=== PATIENT | female | born 1985 | race African-American/Black ===

== ENCOUNTER 2017-01-18 19:43 | Inpatient (IN) | payer OTHER ==
[~2017-01-18] VITALS: Ht 152.4 cm; Wt 52.7 kg
--- NOTE | ~2017-01-18 | S ---
[facility] [place] [address] SURGICAL PATH RPT PROCEDURE Name: CHRISSY CUMMINGS Room #: 213-P DIS IN M.R.#: [id number] Admission: 01/19/17 Date of : 81 Discharge: 01/24/17 Report #: [id number] Path Case #: [id number] PATHOLOGY REPORT COLLECTION DATE: 01/20/2017 RECEIVED DATE: 01/24/2017 SUBMITTING PHYS: Dr. Abel Turk OTHER PHYS: Dr. Jinny Angulo SPECIMEN(S) RECEIVED: A.Peripheral smear * * * * * * * * * * * * FINAL DIAGNOSIS: Peripheral blood smear: - Moderate leukopenia and mild thrombocytopenia. (see comment) COMMENT: Overall, the peripheral blood has moderate leukopenia and mild thrombocytopenia. The hemoglobin is within the normal reference range. The leukopenia consists of neutropenia, lymphopenia, and monocytopenia. The etiology of the findings is unclear based entirely on slide review. Both reactive appearing and plasmacytoid appearing lymphocytes are noted. Potential causes of leukopenia include infections, drug reactions, and primary bone marrow disorders. Potential causes of thrombocytopenia include immune and non-immune platelet destruction, drug and/or toxic exposures, dilutional, and primary bone marrow disorders. Correlation with clinical history and additional laboratory data is recommended. (CLW:; 01/25/2017) PATHOLOGIST: Erika Peterson M.D. REPORT ELECTRONICALLY SIGNED BY: Erika Peterson M.D. DATE/TIME: 01/25/2017 18:52 * * * * * * * * * * * * MICROSCOPIC DESCRIPTION: CBC Data (01/20/17): WBC 1,500 /uL, RBC 3.82, hemoglobin 12.4 g/dL, hematocrit 35.6%, MCV 93.1 fL, MCH 32.5 pg, MCHC 34.9 g/dL, RDW 13.2%, and platelet count 109,000 /uL. Automated white blood cell differential: segs 53.4%, lymphs 40.5%, monos 5.8%, eos 0%, and basos 0.3%. Peripheral Blood Smear: Cytomorphological examination of the Sharma's stained peripheral blood smear confirms the provided data. Red blood cells are normocytic and are without significant anisopoikilocytosis. White blood cells are moderately decreased in number. They are [address] [place] [address] SURGICAL PATH RPT PROCEDURE Name: CUMMINGSMATAWAN Room #: 213-P [facility] IN M.R.#: [id number] Admission: 01/19/17 Date of : 81 Discharge: 01/24/17 Report #: [id number] Path Case #: [id number] predominantly granulocytes and lymphocytes. Granulocytes are predominantly segmented neutrophils and are without significant dyspoiesis or significant left shift. Scattered band forms are noted. Lymphocytes are predominantly small, round, and mature appearing with condensed chromatin and scant cytoplasm with admixed large granular lymphocytes. Occasional reactive appearing and plasmacytoid appearing lymphocytes are noted. No markedly atypical lymphoid cells are seen on scanning. Monocytes are mature. Platelets are adequate (mildly decreased) in number and mainly normal in morphology with rare larger platelets noted. CLINICAL HISTORY: 31 year-old woman with leukopenia and thrombocytopenia. Morphologic review of the peripheral blood smear is requested by the patient's physician. INITIAL CPT CODE(S): A; [place] Professional services performed by [employer] at [facility] [address], [place] [address] Technical services performed by [employer] at [address] [place] [address], [address], [place] [address]. [facility] [address] [place] [address] PHONE: [phone] DIRECTOR: Kishore Mercedes M.D. * * * END OF REPORT * * *
[2017-01-18 19:59] VITALS: BP 122/80
[2017-01-18] MEDS ORDERED: IBUPROFEN 400400 M2 PO (21:03)
[2017-01-18] MEDS ORDERED: FLEXERIL PO (21:03)
[2017-01-18 22:14] LABS: URINE BILIRUBIN NEGATIVE (Negative); URINE BLOOD 3+ (Negative); URINE COLOR YELLOW; URINE GLUCOSE-RANDOM* NEGATIVE (Negative); URINE KETONES NEGATIVE (Negative); URINE NITRITE NEGATIVE (Negative); URINE PROTEIN (DIPSTICK) 2+ (Negative)
[2017-01-18 22:15] LABS: PLATELET COUNT 147 thou/uL (150-400)
[2017-01-18 22:17] LABS: HEMATOCRIT 40.8 % (37.0-47.0); MCHC 34.2 g/dL (28.0-37.0); MCV 93.6 fL (80.0-100.0); RBC 4.36 mil/uL (4.20-5.00); RDW 13.4 % (10.5-14.5)
[2017-01-18 22:19] LABS: CALCIUM 8.4 mg/dL (8.5-10.1); CREATININE 0.6 mg/dL (0.6-1.0); MANUAL DIFF YES; POTASSIUM 3.6 mmol/L (3.5-5.1)
[2017-01-18 22:24] LABS: ALBUMIN 3.4 g/dL (3.4-5.0); DIRECT BILIRUBIN 0.3 mg/dL (<0.1-0.3); TOTAL BILIRUBIN 0.8 mg/dL (<0.1-1.0); TOTAL PROTEIN 7.4 g/dL (6.4-8.2)
[2017-01-18 22:35] LABS: CASTS None Seen /LPF (None Seen); SQUAMOUS >10 Many /LPF (0-3)
[2017-01-18 22:36] LABS: CRYSTALS None Seen /LPF (None Seen)
[2017-01-18 22:37] LABS: AMORPHOUS URATES Few /LPF (None Seen)
[2017-01-18 22:38] LABS: URINE WBC >25 Many /HPF (0-5)
[2017-01-18 22:44] LABS: ABSOLUTE NEUTROPHILS 1.1 thou/uL (1.4-8.2); TOTAL CELL COUNT 100
[2017-01-18 22:47] LABS: WBC 1.6 thou/uL (4.0-11.0)
[2017-01-19 01:52] LABS: CSF GLUCOSE 61 mg/dL (40-70); CSF PROTEIN 29 mg/dL (15-45)
[2017-01-19 02:03] VITALS: BP 122/71
[2017-01-19 02:08] LABS: CSF CLARITY CLEAR; CSF COLOR COLORLESS; CSF WBC 0 /mm3 (0-10); MANUAL DIFF NO; NUMBER OF TUBES 4; VOLUME 4 ml
[2017-01-19 02:19] VITALS: BP 110/70
[2017-01-19 11:20] VITALS: BP 102/62
[2017-01-19 16:01] LABS: HEMATOCRIT 38.5 % (37.0-47.0); HEMOGLOBIN 13.2 gm/dL (12.0-15.0); MCHC 34.3 g/dL (28.0-37.0); MCV 93.4 fL (80.0-100.0); RBC 4.12 mil/uL (4.20-5.00); RDW 13.1 % (10.5-14.5)
[2017-01-19 16:03] LABS: WBC 1.4 thou/uL (4.0-11.0)
[2017-01-19 16:16] LABS: ALBUMIN 2.7 g/dL (3.4-5.0); CALCIUM 7.8 mg/dL (8.5-10.1); CREATININE 0.7 mg/dL (0.6-1.0); POTASSIUM 3.8 mmol/L (3.5-5.1); TOTAL BILIRUBIN 1.1 mg/dL (<0.1-1.0); TOTAL PROTEIN 6.2 g/dL (6.4-8.2)
[2017-01-19 16:21] VITALS: BP 119/80
[2017-01-19 18:07] LABS: HEPATITIS C VIRUS AB 0.1 (0.0-0.9)
[2017-01-19 19:30] VITALS: BP 121/72
[2017-01-19 23:48] VITALS: BP 112/67
[2017-01-20 04:30] VITALS: BP 106/68
[2017-01-20 04:49] LABS: HEMOGLOBIN 13.1 gm/dL (12.0-15.0)
[2017-01-20 04:51] LABS: HEMATOCRIT 38.2 % (37.0-47.0); MCH 32.2 pg (26.0-34.0); MCHC 34.2 g/dL (28.0-37.0); MCV 94.1 fL (80.0-100.0); RBC 4.06 mil/uL (4.20-5.00); RDW 13.3 % (10.5-14.5)
[2017-01-20 04:59] LABS: WBC 1.3 thou/uL (4.0-11.0)
[2017-01-20 05:02] LABS: ALBUMIN 2.5 g/dL (3.4-5.0); CALCIUM 7.7 mg/dL (8.5-10.1); CREATININE 0.5 mg/dL (0.6-1.0); POTASSIUM 3.4 mmol/L (3.5-5.1); TOTAL BILIRUBIN 1.2 mg/dL (<0.1-1.0); TOTAL PROTEIN 5.9 g/dL (6.4-8.2)
[2017-01-20 07:39] VITALS: BP 109/71
[2017-01-20 11:09] LABS: LYME ANTIBODY SCREEN* <0.91 ISR (0.00-0.90)
[2017-01-20 13:46] VITALS: BP 111/67
[2017-01-20 16:06] VITALS: BP 99/53
[2017-01-20 19:34] VITALS: BP 114/75
[2017-01-20 22:10] LABS: HIV ANTIBODY Non Reactive (Non Reactive)
[2017-01-21 03:58] VITALS: BP 115/59
[2017-01-21 04:42] LABS: HEMOGLOBIN 13.4 gm/dL (12.0-15.0); MCH 31.8 pg (26.0-34.0); MCHC 34.3 g/dL (28.0-37.0); MCV 92.6 fL (80.0-100.0); RBC 4.21 mil/uL (4.20-5.00); RDW 13.6 % (10.5-14.5); WBC 2.1 thou/uL (4.0-11.0)
[2017-01-21 05:03] LABS: ALBUMIN 2.8 g/dL (3.4-5.0); CALCIUM 7.8 mg/dL (8.5-10.1); CREATININE 0.6 mg/dL (0.6-1.0); POTASSIUM 3.4 mmol/L (3.5-5.1); TOTAL BILIRUBIN 1.9 mg/dL (<0.1-1.0); TOTAL PROTEIN 6.5 g/dL (6.4-8.2)
[2017-01-21 07:40] VITALS: BP 108/72
[2017-01-21 11:36] VITALS: BP 110/68
[2017-01-21 15:33] VITALS: BP 102/61
[2017-01-21 19:01] VITALS: BP 94/54
[2017-01-22 04:20] VITALS: BP 101/64
[2017-01-22 05:02] LABS: HEMATOCRIT 36.2 % (37.0-47.0); HEMOGLOBIN 12.3 gm/dL (12.0-15.0); MCH 31.8 pg (26.0-34.0); MCV 93.4 fL (80.0-100.0); RBC 3.88 mil/uL (4.20-5.00); RDW 13.7 % (10.5-14.5); WBC 2.4 thou/uL (4.0-11.0)
[2017-01-22 05:19] LABS: ALBUMIN 2.4 g/dL (3.4-5.0); CALCIUM 7.4 mg/dL (8.5-10.1); CREATININE 0.5 mg/dL (0.6-1.0); POTASSIUM 3.2 mmol/L (3.5-5.1); TOTAL BILIRUBIN 1.6 mg/dL (<0.1-1.0); TOTAL PROTEIN 5.9 g/dL (6.4-8.2)
[2017-01-22 07:55] VITALS: BP 143/79
[2017-01-22 11:53] VITALS: BP 111/70
[2017-01-22 11:56] LABS: URINE BILIRUBIN NEGATIVE (Negative); URINE BLOOD NEGATIVE (Negative); URINE COLOR YELLOW; URINE GLUCOSE-RANDOM* NEGATIVE (Negative); URINE KETONES TRACE (Negative); URINE LEUKOCYTES-REFLEX NEGATIVE (Negative); URINE PROTEIN (DIPSTICK) NEGATIVE (Negative); URINE SPECIFIC GRAVITY <= 1.005 (1.003-1.035); URINE UROBILINOGEN 0.2 E.U./dl (0.2-1.0)
[2017-01-22 15:52] VITALS: BP 100/67
[2017-01-22 16:31] VITALS: BP 95/62
[2017-01-22 20:13] VITALS: BP 112/76
[2017-01-23 03:42] LABS: ALBUMIN 2.3 g/dL (3.4-5.0); CALCIUM 7.4 mg/dL (8.5-10.1); CREATININE 0.5 mg/dL (0.6-1.0); POTASSIUM 3.2 mmol/L (3.5-5.1); TOTAL BILIRUBIN 1.3 mg/dL (<0.1-1.0); TOTAL PROTEIN 5.5 g/dL (6.4-8.2)
[2017-01-23 05:17] VITALS: BP 107/66
[2017-01-23 07:33] VITALS: BP 106/71
[2017-01-23 08:58] LABS: HEMATOCRIT 32.4 % (37.0-47.0); HEMOGLOBIN 11.2 gm/dL (12.0-15.0); MCH 32.1 pg (26.0-34.0); MCHC 34.6 g/dL (28.0-37.0); MCV 92.8 fL (80.0-100.0); RBC 3.49 mil/uL (4.20-5.00); RDW 13.9 % (10.5-14.5); WBC 3.5 thou/uL (4.0-11.0)
[2017-01-23 11:43] VITALS: BP 107/70
[2017-01-23 15:47] VITALS: BP 11/71
[2017-01-23 20:06] VITALS: BP 105/67
[2017-01-24 04:05] LABS: HEMATOCRIT 32.9 % (37.0-47.0); MCH 31.4 pg (26.0-34.0); MCHC 33.5 g/dL (28.0-37.0); MCV 93.8 fL (80.0-100.0); RBC 3.51 mil/uL (4.20-5.00); RDW 13.9 % (10.5-14.5); WBC 4.4 thou/uL (4.0-11.0)
[2017-01-24 04:34] VITALS: BP 111/74
[2017-01-24 07:30] VITALS: BP 108/70
[2017-01-24 11:40] VITALS: BP 115/79
[2017-01-24] MEDS ORDERED: DOXYCYCLINE 10100 MG PO (12:59)
[2017-01-24 13:07] VITALS: BP 115/79
[2017-01-24 13:58] VITALS: BP 115/79
[2017-01-24 17:09] LABS: EHRLICHIA AB (HGE) Negative (Neg:<1:64); EHRLICHIA AB (HME) Negative (Neg:<1:20)
== END 2017-01-24 13:55 | disposition home or self-care (01) | DRG 872 ==
LOC: ER 19:43 → 2N 01-19 00:40 → EROBS 01-19 00:40 → 2N 01-19 02:06
PROVIDERS: Internal Medicine; Internal Medicine Hematology & Oncology; Internal Medicine Infectious Disease; Nurse Practitioner; Nurse Practitioner Acute Care
PROC: 009U3ZX Drainage of Spinal Canal, Percutaneous Approach, Diagnostic (ICD-10-PCS; principal; 2017-01-19)
DX: A41.9 Sepsis, unspecified organism (principal); A93.8 Other specified arthropod-borne viral fevers; D72.819 Decreased white blood cell count, unspecified; D69.6 Thrombocytopenia, unspecified; R51 Headache; R74.0 Nonspecific elevation of levels of transaminase and lactic acid dehydrogenase [LDH]; Z79.899 Other long term (current) drug therapy
CPT/HCPCS: 10081